=== PATIENT | female | born 1970 | race Caucasian/White ===

== ENCOUNTER 2017-04-15 09:51 | Day surgery (SDC) | payer OTHER ==
[2017-04-15] MEDS ORDERED: LIDOCAINE HCL 1% 20 ML VIAL ONE (10:23)
[2017-04-15 11:40] VITALS: BP 133/74; PULSE 73; RESP 17; TEMP 97.9; O2SAT 96
--- NOTE | 2017-04-15 11:49 | RADRPT ---
EXAM DATE/TIME: 04/15/2017 10:47 [facility] COMPARISON: No previous studies available for comparison. INDICATIONS : Swollen left neck. MEDICAL HISTORY : Enlarged lymph node. SURGICAL HISTORY : Hysterectomy. ENCOUNTER: Initial ACUITY: 4 - 6 months PAIN SCORE: 0/10 LOCATION: Left neck ORGAN: Left lymph node SPECIMENS: 3 core specimen(s) submitted for pathologic evaluation. DEVICE: 18 gauge Temno needle Post procedure scanning reveals no hematoma or other complication. The possibility does exist that the tissue obtained will be non-diagnostic. If the sample is non-fredy gnostic a repeat biopsy or surgical biopsy may need to be performed. TECHNIQUE: 1. Ultrasound guidance for needle biopsy. 2. Needle biopsy. The risks, benefits and alternatives to the procedure were explained and verbal and written consent w as obtained. The site was prepped in sterile fashion. Full sterile technique was used, including ca p, mask, sterile gloves and gown and a large sterile sheet. Hand hygiene and 2% chlorhexidine and/or betadine/alcohol prep was utilized per protocol for cutaneous antisepsis. The skin and subcutaneous tissues were infiltrated with local anesthetic solution. Sterile gel and sterile probe cover were u tilized for ultrasound guidance. With the patient on the ultrasound table, images were obtained. A needle was advanced into the identified target and the number of specimens as above obtained and armendariz bmitted for pathologic evaluation. The patient tolerated the procedure well and left the ultrasound suite in stable condition. CONCLUSION: Uncomplicated ultrasound guided needle biopsy. Lon Calix MD on April 15, 2017 at 11:46 Board Certified Radiologist. This report was verified electronically.
[2017-04-15 11:55] VITALS: BP 139/84; PULSE 74; RESP 18; O2SAT 97
== END 2017-04-15 12:00 | disposition home or self-care (01) ==
LOC: HRAD 09:51 → HRIP 09:52 → HRAD 12:00
PROVIDERS: ATTEND Otolaryngology Otolaryngology/Facial Plastic Surgery
DX: R59.0 Localized enlarged lymph nodes (principal)
CPT/HCPCS: 38505; 76942; 88305

== ENCOUNTER 2017-05-17 12:50 | Day surgery (SDC) | payer OTHER ==
[2017-05-17 13:36] VITALS: BP 104/77; PULSE 74; RESP 16; TEMP 99; O2SAT 99
[2017-05-17 15:00] VITALS: BP 118/84; PULSE 83; RESP 16; TEMP 98.3; O2SAT 99
[2017-05-17] MEDS ORDERED: LIDOCAINE HCL 1% PF 30 ML VIAL ONE (15:07)
[2017-05-17 15:15] VITALS: BP 121/78; PULSE 73; RESP 16; O2SAT 99
[2017-05-17 15:30] VITALS: BP 112/80; PULSE 72; RESP 16; O2SAT 99
--- NOTE | 2017-05-17 15:51 | RADRPT ---
EXAM DATE/TIME: 05/17/2017 14:56 [facility] COMPARISON: US GUIDED LYMPH NODE BIOSPY, LT, April 15, 2017, 10:47. INDICATIONS : Left neck mass. MEDICAL HISTORY : Enlarged lymph node. SURGICAL HISTORY : Hysterectomy. ENCOUNTER: Subsequent ACUITY: 1 month PAIN SCORE: 0/10 LOCATION: Left neck ORGAN: Left lymph node SPECIMENS: Three core specimen(s) submitted for pathologic evaluation. DEVICE: 16 gauge Temno needle Post procedure scanning reveals no hematoma or other complication. The possibility does exist that the tissue obtained will be non-diagnostic. If the sample is non-fredy gnostic a repeat biopsy or surgical biopsy may need to be performed. TECHNIQUE: 1. Ultrasound guidance for needle biopsy. 2. Needle biopsy. The risks, benefits and alternatives to the procedure were explained and verbal and written consent w as obtained. The site was prepped in sterile fashion. Full sterile technique was used, including ca p, mask, sterile gloves and gown and a large sterile sheet. Hand hygiene and 2% chlorhexidine and/or betadine/alcohol prep was utilized per protocol for cutaneous antisepsis. The skin and subcutaneous tissues were infiltrated with local anesthetic solution. Sterile gel and sterile probe cover were u tilized for ultrasound guidance. With the patient on the ultrasound table, images were obtained. A needle was advanced into the identified target and the number of specimens as above obtained and armendariz bmitted for pathologic evaluation. The patient tolerated the procedure well and left the ultrasound suite in stable condition. CONCLUSION: 1. Uncomplicated ultrasound guided needle biopsy. 2 - 16 gauge and one 18 gauge cores were obtained. 2. This is the second attempt at biopsy. Both the current and previous attempts clearly show the biop sy needle to be well within the parenchyma of the node/mass. If the sample is still inadequate or non diagnostic, would suggest surgical excision for further evaluation. Lon Calix MD on May 17, 2017 at 15:44 Board Certified Radiologist. This report was verified electronically.
== END 2017-05-17 15:30 | disposition home or self-care (01) ==
LOC: HRAD 12:50 → HRIP 12:51 → HRAD 15:30
PROVIDERS: ATTEND Otolaryngology Otolaryngology/Facial Plastic Surgery
DX: R22.1 Localized swelling, mass and lump, neck (principal); G47.30 Sleep apnea, unspecified
CPT/HCPCS: 38505; 76942; 88305